=== PATIENT | male | born 1940 | race Caucasian/White ===

== ENCOUNTER 2025-02-01 10:57 | Outpatient (CLI) | payer MEDICARE, BC ==
[~2025-02-01 10:57] MED LIST: COLLAGENASE 5 GM TUBE UD TP ONE; LIDOCAINE SOLN 4% 50 ML BOTTLE ONE
== END 2025-02-01 23:59 | disposition home or self-care (01) ==
LOC: WOU 10:57
PROVIDERS: ATTEND Student in an Organized Health Care Education/Training Program
DX: S81.812A Laceration without foreign body, left lower leg, initial encounter (principal); W22.8XXA Striking against or struck by other objects, initial encounter; Y92.814 Boat as the place of occurrence of the external cause; Z95.2 Presence of prosthetic heart valve; Z79.82 Long term (current) use of aspirin; Z90.2 Acquired absence of lung [part of]; R60.9 Edema, unspecified
CPT/HCPCS: 11042